=== PATIENT | female | born 1970 | race Caucasian/White ===

== ENCOUNTER 2021-01-29 08:45 | Outpatient (CLI) | payer OTHER | END 2021-01-29 09:06 | disposition home or self-care (01) | LOC: RX STUDY 08:45 | PROVIDERS: ATTEND Internal Medicine Gastroenterology | DX: K21.9 Gastro-esophageal reflux disease without esophagitis (principal); D50.8 Other iron deficiency anemias; D13.1 Benign neoplasm of stomach ==